=== PATIENT | male | born 1995 | race Caucasian/White ===

== ENCOUNTER 2017-01-21 16:38 | Emergency (ER) | payer BC ==
[~2017-01-21] VITALS: Ht 195.6 cm; Wt 139.0 kg
[~2017-01-21 16:38] MED LIST: ERYT.5%O RIGHT EYE; HYDR-3533 PO
[2017-01-21 16:47] VITALS: BP 142/65; PULSE 67; RESP 16; TEMP 98.5; O2SAT 97
--- NOTE | 2017-01-21 17:27 | PD ---
HPI Chief Complaint: Injury Time Seen by Provider: 17:18 Travel History International Travel<30 days: No Contact w/Intl Traveler<30days: No Traveled to known affect area: No History of Present Illness HPI 21-year-old male here with left ankle pain after jumping out of his truck last week. He has pain with weightbearing was slightly relieved with rest and elevation. Denies paresthesia or weakness of the extremity. Severity is moderate. PFSH Past Medical History Medical History: Denies Significant Hx Blood Disorders: No Cardiovascular Problems: No Chemotherapy: No Cerebrovascular Accident: No Diabetes: No Diminished Hearing: No Genitourinary: No Musculoskeletal: No Neurologic: No Psychiatric: No Respiratory: No Immunizations Current: Yes Influenza Vaccination: No Past Surgical History Appendectomy: Yes Neurologic Surgery: Yes (REVISION FOR SPINA BIFIDA X 4) Other Surgery: Yes (1992 & SPINA BIFIDA) Social History Alcohol Use: Yes (ONE DRINK PER MONTH) Tobacco Use: No (denies) Substance Use: No Allergies-Medications (Allergen,Severity, Reaction): Coded Allergies: latex (Unverified Allergy, Severe, HIVES, 01/21/17) Reported Meds & Prescriptions Reported Meds & Active Scripts Active No Active Prescriptions or Reported Medications Review of Systems Except as stated in HPI: all other systems reviewed are Neg Physical Exam Narrative GENERAL: Alert male. Well-appearing. SKIN: Warm and dry. HEAD: Normocephalic. EYES: No scleral icterus. No injection or drainage. NECK: Supple, trachea midline. No JVD or lymphadenopathy. CARDIOVASCULAR: Regular rate and rhythm without murmurs, gallops, or rubs. RESPIRATORY: Breath sounds equal bilaterally. No accessory muscle use. GASTROINTESTINAL: Abdomen soft, non-tender, nondistended. MUSCULOSKELETAL: No cyanosis. Left ankle: Tenderness to the lateral and medial malleolus. Joint is stable. No deformity. No swelling. 2+ dorsal pedis pulse. Brisk cap refill. Data Data Last Documented VS Vital Signs Date Time Temp Pulse Resp B/P (MAP) Pulse Ox O2 Delivery O2 Flow Rate FiO2 01/21/17 16:47 98.5 67 16 142/65 (90) 97 Orders Orders Ankle, Complete ([id number]) (01/21/17 ) [facility] Medical Decision Making Medical Screen Exam Complete: Yes Emergency Medical Condition: Yes Differential Diagnosis Ankle sprain, ankle fracture, dislocation Narrative Course 21 year old male with left ankle pain. Extremities neurovascular intact. X- ray negative for fracture. Diagnosis Primary Impression: Ankle pain Qualified Codes: M25.572 - Pain in left ankle and joints of left foot Referrals: Primary Care Physician Scripts No Active Prescriptions or Reported Meds Disposition: 01 DISCHARGE HOME Condition: Stable Jessica Garcia Jan 21, 2017 17:27
--- NOTE | 2017-01-21 17:48 | RADRPT ---
EXAM DATE/TIME: 01/21/2017 17:33 [facility] COMPARISON: No previous studies available for comparison. INDICATIONS : Left anterior ankle pain after stepping hard out of his truck. MEDICAL HISTORY : None. SURGICAL HISTORY : None. ENCOUNTER: Initial ACUITY: 2 weeks PAIN SCORE: 5/10 LOCATION: Left ankle FINDINGS: Three view exam was performed of the left ankle. The bony structures are in normal alignment. No ev idence of fracture, dislocation, or soft tissue swelling. The ankle mortise is intact. No radiopaqu e foreign bodies are seen. Bony mineralization is normal. CONCLUSION: No acute disease. Paul Horton MD on January 21, 2017 at 17:46 Board Certified Radiologist. This report was verified electronically.
== END 2017-01-21 18:11 | disposition home or self-care (01) ==
LOC: PHEFT 16:38
DX: M25.572 Pain in left ankle and joints of left foot (principal)
CPT/HCPCS: 73610; 99283

== ENCOUNTER 2017-04-30 04:30 | Emergency (ER) | payer BC ==
[~2017-04-30] VITALS: Ht 195.6 cm; Wt 137.0 kg
[2017-04-30 04:36] VITALS: BP 153/91; PULSE 88; RESP 18; TEMP 97.9; O2SAT 96
[2017-04-30 04:52] VITALS: BP_SYST 124; BP_DIAS 80; BP_DIAS 84; PULSE 86; RESP 18; O2SAT 95
[2017-04-30] MEDS ORDERED: SODIUM CHLORIDE 0.9% FLUSH 10 ML FLUSH IVF PRN (05:45)
[2017-04-30 05:52] LABS: AUTOMATED NEUTROPHIL # 3.6 TH/MM3 (1.8-7.7); BASOPHIL % 0.5 % (0.0-2.0); EOSINOPHIL # 0.6 TH/MM3 (0-0.4); EOSINOPHIL % 9.1 % (0.0-4.0); HEMATOCRIT 47.3 % (39.0-51.0); HEMOGLOBIN 15.6 GM/DL (13.0-17.0); LYMPH % 29.6 % (9.0-44.0); MEAN CELL VOLUME 83.5 FL (80.0-100.0); MEAN CORPUSCULAR HEMOGLOBIN 27.5 PG (27.0-34.0); MEAN PLATELET VOLUME 9.3 FL (7.0-11.0); MONO % 8.8 % (0.0-8.0); MONOCYTE # 0.6 TH/MM3 (0-0.9); PLATELET COUNT 254 TH/MM3 (150-450); RED BLOOD COUNT 5.66 MIL/MM3 (4.50-5.90); RED CELL DISTRIBUTION WIDTH 12.7 % (11.6-17.2); WHITE BLOOD COUNT 6.8 TH/MM3 (4.0-11.0)
[2017-04-30 06:01] LABS: CHLORIDE 105 MEQ/L (98-107); SODIUM (NA) 139 MEQ/L (136-145)
[2017-04-30 06:04] LABS: CALCIUM 9.2 MG/DL (8.5-10.1)
[2017-04-30 06:05] LABS: BLOOD UREA NITROGEN 15 MG/DL (7-18); GLUCOSE,RANDOM 101 MG/DL (74-106); MAGNESIUM 2.2 MG/DL (1.5-2.5)
[2017-04-30 06:06] VITALS: BP 123/75; PULSE 67; RESP 18; O2SAT 96
[2017-04-30 06:08] LABS: GLOMERULAR FILTRATION RATE 82 ML/MIN (>89)
[2017-04-30 06:13] LABS: TROPONIN I LESS THAN 0.02 NG/ML (0.02-0.05)
--- NOTE | 2017-04-30 06:20 | PD ---
HPI Chief Complaint: Chest Pain Time Seen by Provider: 05:41 Travel History International Travel<30 days: Yes Contact w/Intl Traveler<30days: [place] Traveled to: [facility] Traveled to known affect area: No History of Present Illness HPI 22-year-old male presents to the emergency department by private transportation to care family for complaint of pleuritic chest pain that awakened him from sleep in the past 3 hours. Patient recently traveled to [facility]. Patient denies previous similar history of pleuritic chest pain. Patient states pain is worsened when taking a deep breath. Patient does have chronic seasonal and environmental allergies but states this is a different type of discomfort. Patient has had no fever or chills. Patient denies productive cough. No lower extremity pain or swelling. No family history or personal history of connective tissue disorder or clotting disorder. PFSH Past Medical History Narrative Medical Seasonal and environmental allergies; spina bifida surgery; occasional alcohol use; nursing notes reviewed Medical History: Unable to Obtain Blood Disorders: No Cardiovascular Problems: No Chemotherapy: No Cerebrovascular Accident: No Diabetes: No Diminished Hearing: No Genitourinary: No Headaches: Yes Musculoskeletal: No Neurologic: No Psychiatric: No Respiratory: No Immunizations Current: Yes Migraines: Yes Past Surgical History Appendectomy: Yes Neurologic Surgery: Yes (REVISION FOR SPINA BIFIDA X 4) Other Surgery: Yes (1992 & SPINA BIFIDA) Social History Alcohol Use: Yes (ONE DRINK PER MONTH) Tobacco Use: No (denies) Substance Use: No Allergies-Medications (Allergen,Severity, Reaction): Coded Allergies: latex (Unverified Allergy, Severe, HIVES, 04/30/17) Reported Meds & Prescriptions Reported Meds & Active Scripts Active No Active Prescriptions or Reported Medications Review of Systems Except as stated in HPI: all other systems reviewed are Neg General / Constitutional: No: Fever, Chills HENT: No: Congestion Cardiovascular: Positive: Chest Pain or Discomfort Respiratory: Positive: Shortness of Breath, Pleuritic Pain, No: Hemoptysis Gastrointestinal: No: Nausea, Vomiting, Diarrhea, Abdominal Pain Genitourinary: No: Dysuria Musculoskeletal: No: Myalgias, Arthralgias Skin: No Rash Neurologic: No: Weakness, Dizziness Psychiatric: No: Anxiety Hematologic/Lymphatic: No: Lymph Node Enlargement Physical Exam Narrative GENERAL: Well-developed well-nourished male in no acute distress no respiratory distress SKIN: Warm and dry. HEAD: Normocephalic. EYES: No scleral icterus. No injection or drainage. NECK: Supple, trachea midline. No JVD or lymphadenopathy. CARDIOVASCULAR: Regular rate and rhythm without murmurs, gallops, or rubs. RESPIRATORY: Breath sounds equal bilaterally. No accessory muscle use. GASTROINTESTINAL: Abdomen soft, non-tender, nondistended. MUSCULOSKELETAL: No cyanosis, or edema. No calf cording no Homans sign. Radial and dorsalis pedis pulses 2+ to palpation bilaterally BACK: Nontender without obvious deformity. No CVA tenderness. Data Data Last Documented VS Vital Signs Date Time Temp Pulse Resp B/P (MAP) Pulse Ox O2 Delivery O2 Flow Rate FiO2 04/30/17 07:24 71 18 132/69 (90) 97 04/30/17 07:19 Room Air 04/30/17 04:36 97.9 Orders Orders Basic Metabolic Panel (Bmp) (04/30/17 05:41) Ckmb (Isoenzyme) Profile (04/30/17 05:41) Complete Blood Count With Diff (04/30/17 05:41) D-Dimer (04/30/17 05:41) Magnesium (Mg) (04/30/17 05:41) Prothrombin Time / Inr (Pt) (04/30/17 05:41) Act Partial Throm Time (Ptt) (04/30/17 05:41) Troponin I (04/30/17 05:41) Chest, Single Ap (04/30/17 05:41) Ecg Monitoring (04/30/17 05:41) Bilateral Bp Monitoring (04/30/17 05:41) Iv Access Insert/Monitor (04/30/17 05:41) Oximetry (04/30/17 05:41) Oxygen Administration (04/30/17 05:41) Sodium Chloride 0.9% Flush (Ns Flush) (04/30/17 05:45) CKMB (04/30/17 04:50) CKMB% (04/30/17 04:50) Ketorolac Inj (Toradol Inj) (04/30/17 06:30) Ed Discharge Order (04/30/17 07:04) Labs Laboratory Tests Test 04/30/17 04:50 White Blood Count 6.8 TH/MM3 Red Blood Count 5.66 MIL/MM3 Hemoglobin 15.6 GM/DL Hematocrit 47.3 % Mean Corpuscular Volume 83.5 FL Mean Corpuscular Hemoglobin 27.5 PG Mean Corpuscular Hemoglobin Concent 33.0 % Red Cell Distribution Width 12.7 % Platelet Count 254 TH/MM3 Mean Platelet Volume 9.3 FL Neutrophils (%) (Auto) 52.0 % Lymphocytes (%) (Auto) 29.6 % Monocytes (%) (Auto) 8.8 % Eosinophils (%) (Auto) 9.1 % Basophils (%) (Auto) 0.5 % Neutrophils # (Auto) 3.6 TH/MM3 Lymphocytes # (Auto) 2.0 TH/MM3 Monocytes # (Auto) 0.6 TH/MM3 Eosinophils # (Auto) 0.6 TH/MM3 Basophils # (Auto) 0.0 TH/MM3 CBC Comment DIFF FINAL Differential Comment Prothrombin Time 10.5 SEC Prothromb Time International Ratio 1.0 RATIO Activated Partial Thromboplast Time 26.6 SEC D-Dimer Quantitative (PE/DVT) LESS THAN 0.19 MG/L FEU Blood Urea Nitrogen 15 MG/DL Creatinine 1.10 MG/DL Random Glucose 101 MG/DL Calcium Level 9.2 MG/DL Magnesium Level 2.2 MG/DL Sodium Level 139 MEQ/L Potassium Level 3.5 MEQ/L Chloride Level 105 MEQ/L Carbon Dioxide Level 29.0 MEQ/L Anion Gap 5 MEQ/L Estimat Glomerular Filtration Rate 82 ML/MIN Total Creatine Kinase 339 U/L Creatine Kinase MB 3.7 NG/ML Creatine Kinase MB % 1.1 % Troponin I LESS THAN 0.02 NG/ML MDM Medical Decision Making Medical Screen Exam Complete: Yes Emergency Medical Condition: Yes Medical Record Reviewed: Yes Interpretation(s) EKG: Normal sinus rhythm rate 72 incomplete right bundle branch block no acute ST elevation injury pattern or ectopy noted cxr: No pneumothorax no effusion no infiltrate Differential Diagnosis Chest pain atypical chest pain pleurisy costochondritis pulmonary embolism pneumothorax pneumonia Narrative Course Patient placed on child monitor IV access obtained specimens collected and sent for resulting EKG sinus rhythm with incomplete right bundle branch block; patient administered Toradol 30 mg IV Diagnosis Primary Impression: Pleurisy Referrals: Primary Care Physician call for appointment Patient Instructions: General Instructions Departure Forms: Tests/Procedures, Work Release Special Instructions: no work x 1 day Additional Instructions: Increase fluid hydration Take ibuprofen 800 mg as often as every 8 hours for pain associated with inflammation or for fever 100.4F or greater Take acetaminophen/Tylenol as needed for fever 100.4F or greater Return to the emergency department for any concerns or change in condition Follow-up with your primary care provider clinic Scripts No Active Prescriptions or Reported Meds Disposition: 01 DISCHARGE HOME Condition: Stable Abril Almazan MD Apr 30, 2017 06:20
--- NOTE | 2017-04-30 06:20 | RADRPT ---
EXAM DATE/TIME: 04/30/2017 05:44 [facility] COMPARISON: No previous studies available for comparison. INDICATIONS : Chest pain. MEDICAL HISTORY : None. SURGICAL HISTORY : None. ENCOUNTER: Initial ACUITY: 1 day PAIN SCORE: 5/10 LOCATION: chest substernal FINDINGS: A single view of the chest demonstrates the lungs to be symmetrically aerated without evidence of mas s, infiltrate or effusion. The cardiomediastinal contours are unremarkable. Osseous structures are intact. CONCLUSION: The lungs are clear. Rico Matos MD on April 30, 2017 at 6:18 Board Certified Radiologist. This report was verified electronically.
[2017-04-30] MEDS ORDERED: KETOROLAC TROMETHAMINE 30 MG/ML (IVP) VIAL IV PUSH ONE (06:30)
[2017-04-30 06:37] LABS: PROTHROMBIN TIME - PATIENT 10.5 SEC (9.8-11.6)
[2017-04-30 06:41] LABS: D-DIMER LESS THAN 0.19 MG/L FEU (0.00-0.50)
[2017-04-30 07:19] VITALS: O2SAT 98
[2017-04-30 07:24] VITALS: BP 132/69; PULSE 71; RESP 18; O2SAT 97
--- NOTE | 2017-04-30 14:55 | EKG ---
Date Performed: 04/30/2017 Time Performed: 05:14:05 PTAGE: 22 years EKG: Sinus rhythm INCOMPLETE RIGHT BUNDLE BRANCH BLOCK BORDERLINE ECG NO PREVIOUS TRACING DOCTOR: Jonnathan Lee Interpretating Date/Time 04/30/2017 14:54:06
== END 2017-04-30 07:53 | disposition home or self-care (01) ==
LOC: PHED 04:30
DX: R09.1 Pleurisy (principal); I45.19 Other right bundle-branch block; R94.31 Abnormal electrocardiogram [ECG] [EKG]; J30.2 Other seasonal allergic rhinitis; Z86.69 Personal history of other diseases of the nervous system and sense organs
CPT/HCPCS: 71045; 80048; 82550; 82552; 83735; 84484; 85025; 85379; 85610; 85730; 93005; 96374; 99285; J1885